=== PATIENT | female | born 1995 | race Caucasian/White ===

== ENCOUNTER 2018-03-15 12:58 | Emergency (ER) | payer MEDICAID ==
--- NOTE | 2018-03-16 11:21 | Diagnostic Imaging Report ---
Right forearm 2 views Indication: Trauma Comparison: Right wrist the same day Findings: No evidence of an acute fracture. No elbow effusion is identified. No significant focal soft tissue swelling. Impression: No evidence of an acute fracture. In the setting of trauma, if clinical symptoms persist and there is continued concern for an occult fracture, follow up exams in 5-7 days is suggested.
--- NOTE | 2018-03-16 11:22 | Diagnostic Imaging Report ---
Right wrist 3 views Indication: Trauma Comparison: Right hand x-rays the same day Findings: No evidence of an acute fracture. No significant focal soft tissue swelling. No dislocation. Impression: No evidence of an acute fracture. In the setting of trauma, if clinical symptoms persist and there is continued concern for an occult fracture, follow up exams in 5-7 days is suggested.
--- NOTE | 2018-03-16 11:24 | Diagnostic Imaging Report ---
Right hand 3 views Indication: Trauma Comparison: Right wrist x-rays the same day Findings: No evidence of an acute fracture or focal soft tissue swelling. There are small serpiginous densities seen along the second, third and fourth rays soft tissues. No dislocation. Impression: No evidence of an acute fracture. Faint serpiginous densities along the second third and fourth rays soft tissues. Findings are nonspecific and may be vascular in etiology or artifactual. Other foreign bodies are considered less likely, correlate clinically. In the setting of trauma, if clinical symptoms persist and there is continued concern for an occult fracture, follow up exams in 5-7 days is suggested.
--- NOTE | 2018-04-06 10:44 | ER Physician Documentation ---
DATE OF SERVICE: 03/15/2018 HISTORY OF PRESENT ILLNESS: The patient is a 22-year-old right-hand dominant female who has had a prior work injury on the right wrist in the past back in 2016. She said she ingested a lot of alcohol the night prior to presentation and believes she might have injured her right hand, wrist or forearm while intoxicated. She is not completely sure, but she says she has pain in all three of these locations. The patient was examined. PHYSICAL EXAMINATION: GENERAL: Well-developed, well-nourished female who appears to be hung over. NEUROLOGIC: Her neurovascular exam is intact. There is no evidence of ____ contracture. There is no evidence of hematoma. No paresthesias present. The patient does complain about some right wrist pain, some distal forearm pain as well as proximal hand pain. She does move these joints, but with coaxing, full flexion and extension is present. No evidence of infection present. Due to the patient's complaints, I went ahead and x-rayed her right hand, right wrist and right forearm. I read them as negative and it was confirmed via radiology reading that these x-rays are negative as well. ASSESSMENT/PLAN: Musculoskeletal complaints in a patient with preexisting right wrist injury. EMERGENCY DEPARTMENT COURSE: The patient was given a right wrist splint and told to follow up with her primary care doctor. She was also given a CD of all the images, so that if she continued to have complaints, she could follow up with her primary care doctor and get referred to an appropriate specialist. [facility]# [id number]
== END 2018-03-15 14:56 | disposition home or self-care (01) ==
LOC: ER 12:58
DX: S69.91XA Unspecified injury of right wrist, hand and finger(s), initial encounter (principal); F10.129 Alcohol abuse with intoxication, unspecified; X58.XXXA Exposure to other specified factors, initial encounter; Y93.89 Activity, other specified; Y92.89 Other specified places as the place of occurrence of the external cause; Y99.8 Other external cause status
CPT/HCPCS: 99285; 29125; 73090; 73100; 73130; 81025; 96372; J1885